=== PATIENT | male | born 1970 | race Caucasian/White ===

== ENCOUNTER 2021-02-27 05:37 | Outpatient (CLI) | payer BC ==
[~2021-02-27] VITALS: Ht 175.3 cm; Wt 76.3 kg
== END 2021-02-27 13:29 | disposition home or self-care (01) ==
LOC: PREOP 05:37
PROVIDERS: ATTEND Internal Medicine
DX: Z01.818 Encounter for other preprocedural examination (principal)

== ENCOUNTER → 2021-03-07 | Day surgery (SDC) | payer BC ==
--- NOTE | 2021-02-24 07:09 | HISTORY AND PHYSICAL ---
DATE OF SERVICE: COLONOSCOPY HISTORY AND PHYSICAL HISTORY OF PRESENT ILLNESS: The patient is 50-year-old white male referred by CHARBEL Whittaker for his first screening colonoscopy. He seemed to be of average risk. He is not aware of any family history for colon cancer. He denies change in bowel habit, abdominal pain, change in weight, melena or bright red blood per rectum. He reports no significant past medical problems other than a vasectomy. He has had no other surgical procedures. In review of his electronic medical record, he did undergo sleep study evaluation in 2006 that was compatible with mild obstructive sleep apnea with AHI of 4.1, do not know whether or not he is currently utilizing CPAP for this. FAMILY HISTORY: Father, history of alcoholism living in his 70s. Mother alive and well, living in her 70s. 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 He has no past smoking history and occasional social alcohol intake. REVIEW OF SYSTEMS: CONSTITUTIONAL: The patient denies change in weight, night sweats, chills or fever. CARDIOVASCULAR: The patient denies chest pain, orthopnea, PND, pedal edema, shortness of breath, syncope or presyncope. RESPIRATORY: The patient denies cough, dyspnea on exertion or wheezing. GASTROINTESTINAL: As noted in the HPI. PHYSICAL EXAMINATION: GENERAL: Reveals a pleasant, normal white male in no acute distress. VITAL SIGNS: Blood pressure 120/70. HEENT: Unremarkable. Sclerae nonicteric. CHEST: Clear to auscultation. CARDIOVASCULAR: Reveals a regular rate and rhythm without murmur, S3 or S4. ABDOMEN: Soft, supple without mass, organomegaly or tenderness. RECTAL: Deferred at the time of colonoscopy. EXTREMITIES: Reveal no cyanosis, clubbing or edema. ASSESSMENT AND PLAN: The patient is set up for screening colonoscopy. Electronic medical record was reviewed. Prep instructions were given and questions were answered. I thank you for the referral of this pleasant gentleman. Job ID: [id number] DocumentID: [id number] Dictated Date: 01/31/2021 11:44:16 Journalism Teacher Date: 01/31/2021 12:04:52 Dictated By: SAUL CALLOWAY MD
[~2021-03-07] VITALS: Ht 175.3 cm; Wt 76.3 kg
[~2021-03-07] MED LIST: LACTATED RINGERS 1,000 ML IV ONE; LACTATED RINGERS 1,000 ML IV STA; LIDOCAINE JELLY 2% 6 ML SYRINGE MM PRN; MIDAZOLAM 2 MG/2 ML (VERSED) VIAL ONE; PROPOFOL INJECTION 50 ML IV ONE; proPOfol 200 MG/20 ML (DIPRIVAN) VIAL IV ONE
[2021-03-07 08:20] VITALS: BP 121/80
--- NOTE | 2021-03-07 08:30 | Pre-Op Note & Conscious Sedat ---
Pre-Operative Progress Note H&P Reviewed The H&P was reviewed, patient examined and no changes noted. Date H&P Reviewed: Mar 07, 2021 Time H&P Reviewed: 08:29 Conscious Sedation Pre-Proced ASA Score 1 For ASA 3 and 4: Consider anesthesia and medical clearance. Also, for patients with a history of failed moderate sedation consider anesthesia. Airway Lungs Heart ASA score ASA 1: a normal healthy patient ASA 2: a patient with a mild systemic disease (mid diabetes, controlled hypertension, obesity ASA 3: a patient with a severe systemic disease that limits activity (angina, COPD, prior Myocardial infarction) ASA 4: a patient with an incapacitating disease that is a constant threat to life (CHF, renal failure) ASA 5: a moribund patient not expected to survive 24 hrs. (ruptured aneurysm) ASA 6: a declared brain- patient whose organs are being harvested. For emergent operations, add the letter E after the classification Mallampati Classification Grade 2 Sedation Plan Analgesia, Amnesia, Plan communicated to team members, Discussed options with patient/fam, Discussed risks with patient/fam The patient is an appropriate candidate to undergo the planned procedure, sedation, and anesthesia. The patient immediately re-assessed prior to indication. SAUL CALLOWAY MD Mar 07, 2021 08:30
[2021-03-07 09:30] VITALS: BP 87/42
[2021-03-07 09:35] VITALS: BP 91/53
[2021-03-07 09:40] VITALS: BP_SYST 107; BP_DIAS 65; BP_DIAS 69
[2021-03-07 10:00] VITALS: BP 124/90
--- NOTE | 2021-03-07 14:56 | OPERATIVE REPORT ---
DATE OF SERVICE: COLONOSCOPY SUMMARY REFERRING PHYSICIAN: Catherine Bowman MD. INDICATIONS: Screening colonoscopy. DESCRIPTION OF PROCEDURE: The patient was placed in the left lateral decubitus position. Prior to undergoing colonoscopy, digital rectal evaluation was performed. Anal sphincter tone was normal and the perianal reflexes intact. The prostate is normal in size and anodular on digital inspection. No abnormalities were noted on digital inspection of the anal canal and distal rectal vault. Colonoscope was then inserted into the rectum and under direct visualization advanced to the cecum. The cecum was identified by identification of the valve and cecal strap. Photographic documentation was obtained. Careful inspection was made as the colonoscope was withdrawn. Quality of prep was good. FINDINGS: There was no evidence for internal and external hemorrhoids and the rectum was unremarkable. Present in the mid sigmoid colon was a 5 to 6 mm sessile adenomatous appearing polyp that was biopsy ablated and submitted for histopathology. There was no subsequent blood loss. The remainder of the sigmoid colon was unremarkable. The descending colon, the splenic flexure, the transverse colon, hepatic flexure unremarkable. Present in the mid ascending colon was a diminutive hyperplastic-appearing polyp measuring 3 mm in size. It was removed via cold forceps. The remainder of the ascending colon and cecum were unremarkable. ASSESSMENT: Two small polyps were removed. The more significant appearing one in the mid sigmoid colon. As long as there are no surprises on histopathology report, would advocate consideration for repeat surveillance colonoscopy in five years. I thank you for the referral of this pleasant gentleman. Job ID: [id number] DocumentID: [id number] Dictated Date: 03/07/2021 09:32:48 Truck Shop Supervisor Date: 03/07/2021 14:55:16 Dictated By: SAUL CALLOWAY MD
--- NOTE | 2021-03-07 15:06 | Anesthesia-General Post-Op ---
MAC Patient Condition Mental Status/LOC: Same as Preop Cardiovascular: Satisfactory Nausea/Vomiting: Absent Respiratory: Satisfactory Pain: Controlled Complications: Absent Post Op Complications Complications None Follow Up Care/Instructions Patient Instructions None needed. Anesthesiology Discharge Order Discharge Order Patient is doing well, no complaints, stable vital signs, no apparent adverse anesthesia problems. No complications reported per nursing. BAKARI CORNELL CRNA Mar 07, 2021 15:06
== END ==
LOC: ENDO 08:05
PROVIDERS: ATTEND Internal Medicine
DX: Z12.11 Encounter for screening for malignant neoplasm of colon (principal); D12.5 Benign neoplasm of sigmoid colon; K63.5 Polyp of colon
CPT/HCPCS: 88305

== ENCOUNTER → 2022-11-27 | Outpatient (CLI) | payer BC ==
[2022-11-27 17:22] LABS: CREATINE KINASE MB 1.1 NG/ML (<6.6)
== END ==
LOC: LAB 16:46
PROVIDERS: ATTEND Nurse Practitioner Family
DX: R07.9 Chest pain, unspecified (principal); R20.0 Anesthesia of skin
CPT/HCPCS: 36415; 82553; 84484